=== PATIENT | male | born 1975 | race Caucasian/White ===

== ENCOUNTER 2018-12-07 09:40 | Day surgery (SDC) | payer OTHER ==
[2018-12-07] MEDS ORDERED: MIDAZOLAM 1 MG/ML 2 ML INJ ×3 (12:22)
[2018-12-07] MEDS ORDERED: FENTAnyl 50 MCG/ML VIAL (12:22)
== END 2018-12-07 15:33 | disposition home or self-care (01) ==
LOC: GIL 09:40
DX: Z12.11 Encounter for screening for malignant neoplasm of colon (principal); K64.4 Residual hemorrhoidal skin tags
CPT/HCPCS: 45378

== ENCOUNTER 2018-12-13 14:14 | Inpatient (IN) | payer OTHER ==
[2018-12-13] MEDS: SOD CHLORIDE 0.9% 1,000 ML IV (17:08)
[2018-12-13 17:18] LABS: ADD MAN DIFF? NO
[2018-12-13 17:20] LABS: BASOPHIL # 0.1 10^3/ul (0.0-0.1); BASOPHILS % 0.5 % (0.0-2.0); EOSINOPHILS # 0.1 10^3/ul (0.0-0.5); HEMATOCRIT 40.8 % (42.0-52.0); HEMOGLOBIN 13.7 g/dl (14.0-18.0); LYMPHOCYTES # 1.9 10^3/ul (0.8-2.9); MEAN CORPUSCULAR HEMOGLOBIN 29.2 pg (29.0-33.0); MEAN CORPUSCULAR HGB CONC 33.6 g/dl (32.0-37.0); MONOCYTE # 1.4 10^3/ul (0.3-0.9); MONOCYTES % 12.3 % (0.0-11.0); NEUTROPHIL # 7.9 10^3/ul (1.6-7.5); NEUTROPHILS % 68.8 % (39.0-77.0); PLATELET COUNT 434 10^3/UL (140-415); RED BLOOD COUNT 4.69 10^6/ul (4.70-6.10)
[2018-12-13 17:20] LABS: WHITE BLOOD COUNT 11.4 10^3/ul (4.8-10.8)
[2018-12-13 17:23] LABS: ADD UMIC YES; UR ASCORBIC ACID 40 mg/dL (NEGATIVE); UR BILIRUBIN (Dip) NEGATIVE (NEGATIVE); UR BLOOD (Dip) NEGATIVE (NEGATIVE); UR CLARITY CLEAR (CLEAR); UR COLOR YELLOW (YELLOW); UR GLUCOSE (Dip) NEGATIVE (NEGATIVE); UR KETONES (Dip) NEGATIVE (NEGATIVE); UR LEUKOCYTE ESTERASE (Dip) TRACE Leu/ul (NEGATIVE); UR MUCUS FEW /HPF (NONE SEEN); UR NITRITE (Dip) NEGATIVE (NEGATIVE); UR RBC 1 /HPF (0-5); UR SPECIFIC GRAVITY (Dip) 1.028 (1.003-1.030); UR TOTAL PROTEIN (Dip) NEGATIVE (NEGATIVE); UR UROBILINOGEN (Dip) NEGATIVE (NEGATIVE); UR WBC 1 /HPF (0-5)
[2018-12-13 17:39] LABS: ALANINE AMINOTRANSFERASE 14 IU/L (13-69); ALBUMIN 4.2 g/dl (3.3-4.9); ALBUMIN/GLOBULIN RATIO 0.95; ALKALINE PHOSPHATASE 51 IU/L (42-121); ANION GAP 9 (5-13); ASPARTATE AMINO TRANSFERASE 14 IU/L (15-46); BILIRUBIN,INDIRECT 0.5 mg/dl (0-1.1); BILIRUBIN,TOTAL 0.5 mg/dl (0.2-1.3); BLOOD UREA NITROGEN 10 mg/dl (7-20); CARBON DIOXIDE 30 mmol/L (21-31); CHLORIDE 103 mmol/L (97-110); CREATININE 0.96 mg/dl (0.61-1.24); Estimated GFR > 60 mL/min (>60); GLUCOSE 103 mg/dl (70-220); LIPASE 58 U/L (23-300); POTASSIUM 4.5 mmol/L (3.5-5.1); SODIUM 142 mmol/L (135-144); TOTAL PROTEIN 8.6 g/dl (6.1-8.1)
[2018-12-13] MEDS: SOD CHLORIDE 0.9% 100 ML (18:27)
[2018-12-13] MEDS: IOHEXOL 300MG/ML 150 ML BTL (18:27)
[2018-12-13] MEDS: PIPER-TAZO 3.375 GM IV (PMX) 100 ML IVPB (19:59)
[2018-12-13] MEDS: ONDANSETRON 4 MG INJ IV (20:37)
[2018-12-13] MEDS: morphine 4 MG/ML VIAL IV (20:37)
[2018-12-13] MEDS ORDERED: ACETAMINOPHEN 325 MG TAB PO (21:30)
[2018-12-13] MEDS ORDERED: ACETAMINOPHEN 650 MG SUPP PR (21:30)
[2018-12-13] MEDS ORDERED: ONDANSETRON 4 MG INJ IV ×2 (21:30)
[2018-12-13] MEDS ORDERED: OXYCODONE/ACETAMINOPHEN (5/325) TAB PO (21:30)
[2018-12-13] MEDS ORDERED: BISACODYL (EC) 5 MG TAB PO (21:30)
[2018-12-13] MEDS: DEXTROSE 5%-0.45% NACL 1,000 ML IV (23:13)
[2018-12-13] MEDS: IOHEXOL 14.3 MG(I)/ML (ADULT) BTL PO (23:14)
[2018-12-13] MEDS: morphine 2 MG INJ IV (23:14)
[2018-12-14 04:56] LABS: ADD MAN DIFF? NO
[2018-12-14 05:05] LABS: WHITE BLOOD COUNT 9.4 10^3/ul (4.8-10.8)
[2018-12-14 05:05] LABS: BASOPHIL # 0.1 10^3/ul (0.0-0.1); BASOPHILS % 0.5 % (0.0-2.0); EOSINOPHILS # 0.2 10^3/ul (0.0-0.5); EOSINOPHILS % 2.1 % (0.0-7.0); HEMATOCRIT 35.7 % (42.0-52.0); HEMOGLOBIN 12.2 g/dl (14.0-18.0); LYMPHOCYTES # 1.9 10^3/ul (0.8-2.9); LYMPHOCYTES % 20.2 % (15.0-51.0); MEAN CORPUSCULAR HEMOGLOBIN 29.5 pg (29.0-33.0); MEAN CORPUSCULAR HGB CONC 34.2 g/dl (32.0-37.0); MEAN CORPUSCULAR VOLUME 86.4 fl (82.0-101.0); MEAN PLATELET VOLUME 9.2 fl (7.4-10.4); MONOCYTE # 1.1 10^3/ul (0.3-0.9); MONOCYTES % 11.3 % (0.0-11.0); NEUTROPHIL # 6.1 10^3/ul (1.6-7.5); NEUTROPHILS % 65.4 % (39.0-77.0); PLATELET COUNT 381 10^3/UL (140-415); RED BLOOD COUNT 4.13 10^6/ul (4.70-6.10); RED CELL DISTRIBUTION WIDTH 12.1 % (11.5-14.5)
[2018-12-14 05:29] LABS: ALANINE AMINOTRANSFERASE 17 IU/L (13-69); ALBUMIN 3.5 g/dl (3.3-4.9); ALBUMIN/GLOBULIN RATIO 0.94; ALKALINE PHOSPHATASE 46 IU/L (42-121); ANION GAP 10 (5-13); ASPARTATE AMINO TRANSFERASE 13 IU/L (15-46); BILIRUBIN,INDIRECT 0.6 mg/dl (0-1.1); BILIRUBIN,TOTAL 0.6 mg/dl (0.2-1.3); BLOOD UREA NITROGEN 7 mg/dl (7-20); CALCIUM 8.7 mg/dl (8.4-10.2); CARBON DIOXIDE 28 mmol/L (21-31); CHLORIDE 105 mmol/L (97-110); CREATININE 0.96 mg/dl (0.61-1.24); Estimated GFR > 60 mL/min (>60); GLUCOSE 108 mg/dl (70-220); POTASSIUM 4.1 mmol/L (3.5-5.1); SODIUM 143 mmol/L (135-144); TOTAL PROTEIN 7.2 g/dl (6.1-8.1)
[2018-12-14] MEDS: PIPER-TAZO 3.375 GM IV (PMX) 100 ML IVPB (05:53)
[2018-12-14] MEDS ORDERED: PANTOPRAZOLE 40 MG INJ IV (06:00)
[2018-12-14] MEDS: FAMOTIDINE 20 MG INJ IV ×2 (07:57→21:05)
[2018-12-14] MEDS: DEXTROSE 5%-0.45% NACL 1,000 ML IV ×2 (09:53→11:31)
[2018-12-14] MEDS: morphine 2 MG INJ IV ×4 (11:28→23:21)
[2018-12-15] MEDS: DEXTROSE 5%-0.45% NACL 1,000 ML IV (00:36)
[2018-12-15 05:12] LABS: ADD MAN DIFF? NO
[2018-12-15 05:21] LABS: WHITE BLOOD COUNT 5.6 10^3/ul (4.8-10.8)
[2018-12-15 05:21] LABS: BASOPHIL # 0.1 10^3/ul (0.0-0.1); BASOPHILS % 0.9 % (0.0-2.0); EOSINOPHILS # 0.3 10^3/ul (0.0-0.5); EOSINOPHILS % 4.7 % (0.0-7.0); HEMATOCRIT 36.9 % (42.0-52.0); HEMOGLOBIN 12.8 g/dl (14.0-18.0); LYMPHOCYTES # 2.2 10^3/ul (0.8-2.9); LYMPHOCYTES % 39.9 % (15.0-51.0); MEAN CORPUSCULAR HEMOGLOBIN 29.8 pg (29.0-33.0); MEAN CORPUSCULAR HGB CONC 34.7 g/dl (32.0-37.0); MEAN CORPUSCULAR VOLUME 85.8 fl (82.0-101.0); MEAN PLATELET VOLUME 9.1 fl (7.4-10.4); MONOCYTE # 0.9 10^3/ul (0.3-0.9); MONOCYTES % 15.5 % (0.0-11.0); NEUTROPHIL # 2.1 10^3/ul (1.6-7.5); NEUTROPHILS % 38.3 % (39.0-77.0); PLATELET COUNT 395 10^3/UL (140-415); RED CELL DISTRIBUTION WIDTH 11.9 % (11.5-14.5)
[2018-12-15] MEDS ORDERED: ROPIVACAINE 0.5 % 30 ML VIAL (07:26)
[2018-12-15] MEDS ORDERED: CEFAZOLIN 1 GM INJ (07:26)
[2018-12-15] MEDS ORDERED: ROCURONIUM 50 MG INJ (07:26)
[2018-12-15] MEDS ORDERED: metroNIDAZOLE 500 MG/NS (PMX) 100 ML IVPB (07:26)
[2018-12-15] MEDS ORDERED: PROPOFOL 20 ML (07:26)
[2018-12-15] MEDS ORDERED: MIDAZOLAM 1 MG/ML 2 ML INJ (07:26)
[2018-12-15] MEDS ORDERED: ONDANSETRON 4 MG INJ IV ×2 (07:30→09:00)
[2018-12-15] MEDS ORDERED: METOCLOPRAMIDE 10 MG INJ IV (07:30)
[2018-12-15] MEDS ORDERED: DIPHENHYDRAMINE 50 MG INJ IV (07:30)
[2018-12-15] MEDS ORDERED: HYDROmorphONE 1 MG/5 ML IV SYRINGE IV (07:30)
[2018-12-15] MEDS ORDERED: LABETALOL HCL 20MG INJ IV (07:30)
[2018-12-15] MEDS ORDERED: FENTAnyl 50 MCG/ML VIAL IV ×2 (07:30)
[2018-12-15] MEDS ORDERED: EPHEDrine 25 MG/5 ML SYG IV (07:30)
[2018-12-15] MEDS: FAMOTIDINE 20 MG INJ IV ×3 (08:00→21:40)
[2018-12-15] MEDS: PIPER-TAZO 3.375 GM IV (PMX) 100 ML IVPB ×3 (08:00→17:24)
[2018-12-15] MEDS ORDERED: METOCLOPRAMIDE 10 MG INJ (08:43)
[2018-12-15] MEDS ORDERED: ONDANSETRON 4 MG INJ (08:43)
[2018-12-15] MEDS ORDERED: KETOROLAC 30 MG INJ (08:43)
[2018-12-15] MEDS ORDERED: DEXAMETHASONE 4 MG/ML 5 ML INJ (08:43)
[2018-12-15] MEDS ORDERED: SUGAMMADEX SODIUM 200 MG/2 ML VIAL IV (08:44)
[2018-12-15] MEDS ORDERED: DIPHENHYDRAMINE 25 MG CAP PO (09:00)
[2018-12-15] MEDS: MEPERIDINE 25 MG INJ IV (09:18)
[2018-12-15] MEDS: HYDROmorphONE 1 MG/5 ML IV SYRINGE IV ×2 (09:19→09:30)
[2018-12-15] MEDS: FENTAnyl 50 MCG/ML VIAL IV (09:50)
[2018-12-15] MEDS: morphine 2 MG INJ IV ×3 (10:22→20:36)
[2018-12-15] MEDS: D5W-0.45 NACL + KCL 20 MEQ 1,000 ML IV ×2 (10:22→17:24)
[2018-12-15] MEDS: KETOROLAC 30 MG INJ IV ×2 (12:17→18:19)
[2018-12-15] MEDS: metroNIDAZOLE 500 MG/NS (PMX) 100 ML IVPB ×2 (13:25→20:40)
[2018-12-15] MEDS: HYDROCODONE/APAP (5/325) TAB PO (21:40)
[2018-12-16] MEDS: KETOROLAC 30 MG INJ IV ×4 (01:05→21:26)
[2018-12-16] MEDS: DEXTROSE 5%-0.45% NACL 1,000 ML IV ×2 (01:43→11:40)
[2018-12-16] MEDS: PIPER-TAZO 3.375 GM IV (PMX) 100 ML IVPB ×5 (01:43→23:29)
[2018-12-16] MEDS: D5W-0.45 NACL + KCL 20 MEQ 1,000 ML IV ×2 (04:52→18:01)
[2018-12-16 05:46] LABS: ADD MAN DIFF? NO
[2018-12-16 05:54] LABS: BASOPHILS % 0.2 % (0.0-2.0); HEMATOCRIT 37.5 % (42.0-52.0); HEMOGLOBIN 12.8 g/dl (14.0-18.0); LYMPHOCYTES # 1.4 10^3/ul (0.8-2.9); MEAN CORPUSCULAR HEMOGLOBIN 28.6 pg (29.0-33.0); MEAN CORPUSCULAR HGB CONC 34.1 g/dl (32.0-37.0); MEAN CORPUSCULAR VOLUME 83.9 fl (82.0-101.0); MEAN PLATELET VOLUME 9.4 fl (7.4-10.4); MONOCYTE # 1.1 10^3/ul (0.3-0.9); MONOCYTES % 8.8 % (0.0-11.0); NEUTROPHIL # 10.1 10^3/ul (1.6-7.5); NEUTROPHILS % 79.6 % (39.0-77.0); PLATELET COUNT 439 10^3/UL (140-415); RED BLOOD COUNT 4.47 10^6/ul (4.70-6.10); RED CELL DISTRIBUTION WIDTH 11.9 % (11.5-14.5)
[2018-12-16 05:54] LABS: WHITE BLOOD COUNT 12.7 10^3/ul (4.8-10.8)
[2018-12-16 06:28] LABS: PHOSPHORUS 4.9 mg/dl (2.5-4.9)
[2018-12-16] MEDS: MAGNESIUM HYDROXIDE 30ML CUP PO (06:46)
[2018-12-16] MEDS: DOCUSATE SODIUM 100 MG CAP PO (06:46)
[2018-12-16 07:08] LABS: ALANINE AMINOTRANSFERASE 13 IU/L (13-69); ALBUMIN 3.5 g/dl (3.3-4.9); ALBUMIN/GLOBULIN RATIO 0.97; ALKALINE PHOSPHATASE 43 IU/L (42-121); ANION GAP 11 (5-13); ASPARTATE AMINO TRANSFERASE 15 IU/L (15-46); BILIRUBIN,INDIRECT 0.4 mg/dl (0-1.1); BILIRUBIN,TOTAL 0.4 mg/dl (0.2-1.3); BLOOD UREA NITROGEN 8 mg/dl (7-20); CARBON DIOXIDE 25 mmol/L (21-31); CHLORIDE 105 mmol/L (97-110); Estimated GFR > 60 mL/min (>60); GLUCOSE 119 mg/dl (70-220); POTASSIUM 3.9 mmol/L (3.5-5.1); SODIUM 141 mmol/L (135-144); TOTAL PROTEIN 7.1 g/dl (6.1-8.1)
[2018-12-16] MEDS: metroNIDAZOLE 500 MG/NS (PMX) 100 ML IVPB ×3 (07:25→21:32)
[2018-12-16] MEDS: HYDROCODONE/APAP (5/325) TAB PO ×2 (09:43→16:14)
[2018-12-16] MEDS: morphine 2 MG INJ IV ×3 (11:53→23:30)
[2018-12-16] MEDS: ACETAMINOPHEN 325 MG TAB PO (13:36)
[2018-12-16] MEDS: FAMOTIDINE 20 MG INJ IV (21:26)
[2018-12-16] MEDS: NACL 0.9% 3 ML SYG IV (23:30)
[2018-12-17] MEDS: HYDROCODONE/APAP (5/325) TAB PO ×5 (00:36→15:58)
[2018-12-17] MEDS: morphine 2 MG INJ IV ×3 (02:17→23:00)
[2018-12-17] MEDS: KETOROLAC 30 MG INJ IV ×3 (04:36→20:02)
[2018-12-17 05:21] LABS: ADD MAN DIFF? NO
[2018-12-17 05:23] LABS: WHITE BLOOD COUNT 10.4 10^3/ul (4.8-10.8)
[2018-12-17 05:23] LABS: BASOPHILS % 0.3 % (0.0-2.0); EOSINOPHILS % 0.3 % (0.0-7.0); HEMATOCRIT 37.5 % (42.0-52.0); LYMPHOCYTES # 1.1 10^3/ul (0.8-2.9); LYMPHOCYTES % 10.2 % (15.0-51.0); MEAN CORPUSCULAR HEMOGLOBIN 29.3 pg (29.0-33.0); MEAN CORPUSCULAR HGB CONC 34.7 g/dl (32.0-37.0); MEAN CORPUSCULAR VOLUME 84.7 fl (82.0-101.0); MEAN PLATELET VOLUME 9.2 fl (7.4-10.4); MONOCYTE # 0.7 10^3/ul (0.3-0.9); MONOCYTES % 6.3 % (0.0-11.0); NEUTROPHIL # 8.6 10^3/ul (1.6-7.5); NEUTROPHILS % 82.3 % (39.0-77.0); PLATELET COUNT 377 10^3/UL (140-415); RED BLOOD COUNT 4.43 10^6/ul (4.70-6.10); RED CELL DISTRIBUTION WIDTH 12.1 % (11.5-14.5)
[2018-12-17 05:34] LABS: MAGNESIUM 2.1 mg/dl (1.7-2.5)
[2018-12-17 05:34] LABS: PHOSPHORUS 3.4 mg/dl (2.5-4.9)
[2018-12-17] MEDS: metroNIDAZOLE 500 MG/NS (PMX) 100 ML IVPB ×3 (05:34→22:59)
[2018-12-17] MEDS: PIPER-TAZO 3.375 GM IV (PMX) 100 ML IVPB ×3 (05:34→20:50)
[2018-12-17 05:52] LABS: ALANINE AMINOTRANSFERASE 18 IU/L (13-69); ALBUMIN 3.5 g/dl (3.3-4.9); ALBUMIN/GLOBULIN RATIO 0.94; ALKALINE PHOSPHATASE 49 IU/L (42-121); ANION GAP 9 (5-13); ASPARTATE AMINO TRANSFERASE 19 IU/L (15-46); BILIRUBIN,INDIRECT 0.5 mg/dl (0-1.1); BILIRUBIN,TOTAL 0.5 mg/dl (0.2-1.3); BLOOD UREA NITROGEN 7 mg/dl (7-20); CALCIUM 8.5 mg/dl (8.4-10.2); CARBON DIOXIDE 25 mmol/L (21-31); CHLORIDE 105 mmol/L (97-110); CREATININE 0.82 mg/dl (0.61-1.24); Estimated GFR > 60 mL/min (>60); GLUCOSE 109 mg/dl (70-220); SODIUM 139 mmol/L (135-144); TOTAL PROTEIN 7.2 g/dl (6.1-8.1)
[2018-12-17] MEDS: FAMOTIDINE 20 MG INJ IV ×2 (09:29→20:50)
[2018-12-17] MEDS: DOCUSATE SODIUM 100 MG CAP PO (09:40)
[2018-12-17] MEDS: MAGNESIUM HYDROXIDE 30ML CUP PO (09:40)
[2018-12-17] MEDS: D5W-0.45 NACL + KCL 20 MEQ 1,000 ML IV ×2 (13:06→20:50)
[2018-12-17] MEDS ORDERED: ONDANSETRON 4 MG INJ (15:30)
[2018-12-17] MEDS ORDERED: PROPOFOL 20 ML (15:32)
[2018-12-17] MEDS ORDERED: LIDOCAINE 2% (SDV) 5 ML INJ (15:34)
[2018-12-17] MEDS ORDERED: ROCURONIUM 50 MG INJ (15:34)
[2018-12-17] MEDS ORDERED: morphine 10 MG INJ (15:40)
[2018-12-17] MEDS ORDERED: DEXAMETHASONE 4 MG/ML 5 ML INJ (15:41)
[2018-12-17] MEDS ORDERED: NEOSTIGMINE 3 MG/3 ML SYRINGE (18:47)
[2018-12-17] MEDS ORDERED: GLYCOPYRROLATE 0.4 MG INJ (18:47)
[2018-12-17] MEDS: FENTAnyl 50 MCG/ML VIAL IV ×2 (19:18→19:31)
[2018-12-17] MEDS: ONDANSETRON 4 MG INJ IV (19:18)
[2018-12-17] MEDS: MEPERIDINE 25 MG INJ IV (19:19)
[2018-12-17] MEDS ORDERED: HYDROmorphONE 1 MG/5 ML IV SYRINGE IV (19:30)
[2018-12-17] MEDS ORDERED: ACETAMINOPHEN 325 MG TAB PO (19:30)
[2018-12-17] MEDS ORDERED: METOCLOPRAMIDE 10 MG INJ IV (19:30)
[2018-12-17] MEDS ORDERED: ONDANSETRON 4 MG INJ IV (19:30)
[2018-12-17] MEDS ORDERED: FENTAnyl 50 MCG/ML VIAL IV ×2 (19:30)
[2018-12-17] MEDS ORDERED: ALBUTEROL 0.083% (NEB) 2.5 MG/3 ML AMP HHN (19:30)
[2018-12-17] MEDS ORDERED: DIPHENHYDRAMINE 25 MG CAP PO (19:30)
[2018-12-17] MEDS ORDERED: MIDAZOLAM 1 MG/ML 2 ML INJ IV (19:30)
[2018-12-17] MEDS ORDERED: IBUPROFEN 600 MG TAB PO (19:30)
[2018-12-17] MEDS ORDERED: EPHEDrine 25 MG/5 ML SYG IV (19:30)
[2018-12-17] MEDS ORDERED: DIPHENHYDRAMINE 50 MG INJ IV (19:30)
[2018-12-17] MEDS: HYDROmorphONE 1 MG/5 ML IV SYRINGE IV ×2 (19:41→19:49)
[2018-12-17] MEDS: hydrALAzine 20 MG INJ IV (19:42)
[2018-12-17] MEDS: LABETALOL HCL 20MG INJ IV (20:05)
[2018-12-17] MEDS: HYDROmorphONE 0.5 MG/0.5 ML SYG IV (20:50)
[2018-12-18] MEDS: morphine 2 MG INJ IV ×2 (00:58→05:38)
[2018-12-18] MEDS: PIPER-TAZO 3.375 GM IV (PMX) 100 ML IVPB ×4 (00:58→17:32)
[2018-12-18 05:18] LABS: ADD MAN DIFF? NO
[2018-12-18 05:23] LABS: BASOPHILS % 0.2 % (0.0-2.0); EOSINOPHILS % 0.1 % (0.0-7.0); HEMATOCRIT 35.7 % (42.0-52.0); HEMOGLOBIN 12.5 g/dl (14.0-18.0); LYMPHOCYTES % 8.3 % (15.0-51.0); MEAN CORPUSCULAR HEMOGLOBIN 29.7 pg (29.0-33.0); MEAN CORPUSCULAR VOLUME 84.8 fl (82.0-101.0); MEAN PLATELET VOLUME 9.2 fl (7.4-10.4); MONOCYTE # 0.8 10^3/ul (0.3-0.9); MONOCYTES % 7.2 % (0.0-11.0); NEUTROPHIL # 9.7 10^3/ul (1.6-7.5); NEUTROPHILS % 83.7 % (39.0-77.0); PLATELET COUNT 398 10^3/UL (140-415); RED BLOOD COUNT 4.21 10^6/ul (4.70-6.10); RED CELL DISTRIBUTION WIDTH 12.1 % (11.5-14.5)
[2018-12-18 05:23] LABS: WHITE BLOOD COUNT 11.6 10^3/ul (4.8-10.8)
[2018-12-18] MEDS: D5W-0.45 NACL + KCL 20 MEQ 1,000 ML IV ×3 (05:30→21:37)
[2018-12-18 05:50] LABS: ANION GAP 7 (5-13); BLOOD UREA NITROGEN 7 mg/dl (7-20); CARBON DIOXIDE 27 mmol/L (21-31); CHLORIDE 103 mmol/L (97-110); CREATININE 0.78 mg/dl (0.61-1.24); Estimated GFR > 60 mL/min (>60); GLUCOSE 133 mg/dl (70-220); POTASSIUM 4.6 mmol/L (3.5-5.1); SODIUM 137 mmol/L (135-144)
[2018-12-18] MEDS: metroNIDAZOLE 500 MG/NS (PMX) 100 ML IVPB ×3 (06:20→21:19)
[2018-12-18] MEDS: FAMOTIDINE 20 MG INJ IV ×2 (08:54→20:26)
[2018-12-18] MEDS ORDERED: IBUPROFEN 600 MG TAB PO (09:00)
[2018-12-18] MEDS: KETOROLAC 30 MG INJ IV ×2 (09:03→17:32)
[2018-12-18 10:15] LABS: HEMOGLOBIN A1C 5.2 % (0-5.9)
[2018-12-18] MEDS: HYDROCODONE/APAP (5/325) TAB PO ×2 (13:56→20:26)
[2018-12-18] MEDS: HYDROmorphONE 0.5 MG/0.5 ML SYG IV (21:23)
[2018-12-19] MEDS: PIPER-TAZO 3.375 GM IV (PMX) 100 ML IVPB ×4 (00:34→17:34)
[2018-12-19] MEDS: KETOROLAC 30 MG INJ IV ×3 (00:35→19:40)
[2018-12-19] MEDS: HYDROCODONE/APAP (5/325) TAB PO ×4 (02:24→21:42)
[2018-12-19 05:01] LABS: ADD MAN DIFF? NO
[2018-12-19 05:13] LABS: BASOPHILS % 0.4 % (0.0-2.0); EOSINOPHILS # 0.4 10^3/ul (0.0-0.5); EOSINOPHILS % 4.7 % (0.0-7.0); HEMATOCRIT 32.4 % (42.0-52.0); HEMOGLOBIN 11.1 g/dl (14.0-18.0); LYMPHOCYTES # 1.4 10^3/ul (0.8-2.9); LYMPHOCYTES % 14.7 % (15.0-51.0); MEAN CORPUSCULAR HEMOGLOBIN 29.4 pg (29.0-33.0); MEAN CORPUSCULAR HGB CONC 34.3 g/dl (32.0-37.0); MEAN CORPUSCULAR VOLUME 85.7 fl (82.0-101.0); MEAN PLATELET VOLUME 9.2 fl (7.4-10.4); MONOCYTE # 0.9 10^3/ul (0.3-0.9); MONOCYTES % 9.3 % (0.0-11.0); NEUTROPHIL # 6.7 10^3/ul (1.6-7.5); NEUTROPHILS % 70.5 % (39.0-77.0); PLATELET COUNT 397 10^3/UL (140-415); RED BLOOD COUNT 3.78 10^6/ul (4.70-6.10); RED CELL DISTRIBUTION WIDTH 12.1 % (11.5-14.5)
[2018-12-19 05:13] LABS: WHITE BLOOD COUNT 9.4 10^3/ul (4.8-10.8)
[2018-12-19] MEDS: metroNIDAZOLE 500 MG/NS (PMX) 100 ML IVPB ×3 (05:53→21:09)
[2018-12-19 05:57] LABS: ANION GAP 7 (5-13); BLOOD UREA NITROGEN 7 mg/dl (7-20); CALCIUM 8.3 mg/dl (8.4-10.2); CARBON DIOXIDE 27 mmol/L (21-31); CHLORIDE 104 mmol/L (97-110); Estimated GFR > 60 mL/min (>60); GLUCOSE 116 mg/dl (70-220); SODIUM 138 mmol/L (135-144)
[2018-12-19] MEDS: FAMOTIDINE 20 MG INJ IV ×2 (09:20→21:02)
[2018-12-19] MEDS: D5W-0.45 NACL + KCL 20 MEQ 1,000 ML IV ×2 (13:04→21:30)
[2018-12-19] MEDS: HYDROmorphONE 0.5 MG/0.5 ML SYG IV ×2 (14:52→21:00)
[2018-12-19] MEDS: morphine 2 MG INJ IV (19:46)
[2018-12-20] MEDS: PIPER-TAZO 3.375 GM IV (PMX) 100 ML IVPB ×4 (00:09→18:00)
[2018-12-20] MEDS: D5W-0.45 NACL + KCL 20 MEQ 1,000 ML IV ×2 (00:10→12:46)
[2018-12-20] MEDS: KETOROLAC 30 MG INJ IV ×2 (00:44→17:16)
[2018-12-20] MEDS: HYDROmorphONE 0.5 MG/0.5 ML SYG IV ×3 (02:53→20:06)
[2018-12-20] MEDS: HYDROCODONE/APAP (5/325) TAB PO ×4 (03:55→22:06)
[2018-12-20] MEDS: metroNIDAZOLE 500 MG/NS (PMX) 100 ML IVPB ×3 (06:05→22:06)
[2018-12-20 09:37] LABS: ADD UMIC YES; UR ASCORBIC ACID NEGATIVE (NEGATIVE); UR BILIRUBIN (Dip) NEGATIVE (NEGATIVE); UR BLOOD (Dip) NEGATIVE (NEGATIVE); UR CLARITY CLEAR (CLEAR); UR COLOR YELLOW (YELLOW); UR GLUCOSE (Dip) NEGATIVE (NEGATIVE); UR KETONES (Dip) NEGATIVE (NEGATIVE); UR LEUKOCYTE ESTERASE (Dip) TRACE Leu/ul (NEGATIVE); UR NITRITE (Dip) NEGATIVE (NEGATIVE); UR RBC 1 /HPF (0-5); UR SPECIFIC GRAVITY (Dip) 1.023 (1.003-1.030); UR TOTAL PROTEIN (Dip) NEGATIVE (NEGATIVE); UR UROBILINOGEN (Dip) NEGATIVE (NEGATIVE); UR WBC 3 /HPF (0-5)
[2018-12-20] MEDS: FAMOTIDINE 20 MG INJ IV ×2 (09:38→20:05)
[2018-12-21] MEDS: PIPER-TAZO 3.375 GM IV (PMX) 100 ML IVPB ×2 (00:16→07:28)
[2018-12-21] MEDS: HYDROmorphONE 0.5 MG/0.5 ML SYG IV ×2 (04:02→07:43)
[2018-12-21] MEDS: HYDROCODONE/APAP (5/325) TAB PO ×4 (04:22→20:15)
[2018-12-21] MEDS: metroNIDAZOLE 500 MG/NS (PMX) 100 ML IVPB (08:52)
[2018-12-21] MEDS: FAMOTIDINE 20 MG INJ IV ×2 (08:52→20:13)
[2018-12-21] MEDS: metroNIDAZOLE 500 MG TAB PO ×2 (14:23→20:15)
[2018-12-21] MEDS: CIPROFLOXACIN 250 MG TAB NGT (18:04)
[2018-12-22] MEDS: HYDROCODONE/APAP (5/325) TAB PO ×3 (00:52→12:14)
[2018-12-22 05:00] LABS: ADD MAN DIFF? NO
[2018-12-22] MEDS: CIPROFLOXACIN 250 MG TAB NGT (05:04)
[2018-12-22] MEDS: metroNIDAZOLE 500 MG TAB PO ×2 (05:04→14:41)
[2018-12-22 05:06] LABS: BASOPHIL # 0.1 10^3/ul (0.0-0.1); BASOPHILS % 0.8 % (0.0-2.0); EOSINOPHILS # 0.6 10^3/ul (0.0-0.5); EOSINOPHILS % 7.3 % (0.0-7.0); HEMATOCRIT 34.6 % (42.0-52.0); LYMPHOCYTES # 1.6 10^3/ul (0.8-2.9); LYMPHOCYTES % 19.4 % (15.0-51.0); MEAN CORPUSCULAR HEMOGLOBIN 29.3 pg (29.0-33.0); MEAN CORPUSCULAR HGB CONC 34.7 g/dl (32.0-37.0); MEAN CORPUSCULAR VOLUME 84.6 fl (82.0-101.0); MEAN PLATELET VOLUME 8.9 fl (7.4-10.4); MONOCYTE # 0.8 10^3/ul (0.3-0.9); MONOCYTES % 9.3 % (0.0-11.0); NEUTROPHIL # 5.2 10^3/ul (1.6-7.5); NEUTROPHILS % 62.1 % (39.0-77.0); PLATELET COUNT 477 10^3/UL (140-415); RED BLOOD COUNT 4.09 10^6/ul (4.70-6.10)
[2018-12-22 05:06] LABS: WHITE BLOOD COUNT 8.4 10^3/ul (4.8-10.8)
[2018-12-22 05:26] LABS: ANION GAP 8 (5-13); BLOOD UREA NITROGEN 8 mg/dl (7-20); CALCIUM 9.2 mg/dl (8.4-10.2); CARBON DIOXIDE 28 mmol/L (21-31); CHLORIDE 103 mmol/L (97-110); CREATININE 0.91 mg/dl (0.61-1.24); Estimated GFR > 60 mL/min (>60); GLUCOSE 100 mg/dl (70-220); MAGNESIUM 2.1 mg/dl (1.7-2.5); POTASSIUM 4.1 mmol/L (3.5-5.1); SODIUM 139 mmol/L (135-144)
[2018-12-22 05:26] LABS: PHOSPHORUS 4.8 mg/dl (2.5-4.9)
[2018-12-22] MEDS: FAMOTIDINE 20 MG INJ IV (09:02)
== END 2018-12-22 15:19 | disposition home health service (06) | DRG 329 ==
LOC: FTE 14:14 → MS1 21:01
PROC: 0DTJ4ZZ Resection of Appendix, Percutaneous Endoscopic Approach (ICD-10-PCS; 2018-12-15 07:20)
PROC: 0DBN0ZZ Excision of Sigmoid Colon, Open Approach (ICD-10-PCS; principal; 2018-12-15 07:26)
PROC: 0D1B0Z4 Bypass Ileum to Cutaneous, Open Approach (ICD-10-PCS; 2018-12-15 07:26)
DX: K57.20 Diverticulitis of large intestine with perforation and abscess without bleeding (principal); K35.33 Acute appendicitis with perforation, localized peritonitis, and gangrene, with abscess; K56.7 Ileus, unspecified; D64.9 Anemia, unspecified; E66.3 Overweight; Z68.28 Body mass index [BMI] 28.0-28.9, adult
CPT/HCPCS: 36415; 74176; 74177; 80048; 80053; 81001; 83036; 83690; 83735; 84100; 85025; 88304; 96361; 96374; 96375; 99285-25

== ENCOUNTER 2019-01-03 15:57 | Emergency (ER) | payer OTHER | END 2019-01-03 16:26 | disposition home or self-care (01) | LOC: E/R 16:26 | DX: L76.34 Postprocedural seroma of skin and subcutaneous tissue following other procedure (principal) | CPT/HCPCS: 99283; Z7502 ==